=== PATIENT | female | born 1980 | race Caucasian/White ===

== ENCOUNTER 2019-06-21 22:48 | Emergency (ER) | payer OTHER, SELFPAY ==
--- OUTSIDE RECORDS SUMMARY | 2019-06-21 22:49 | XMS REPORT ---
:1980 [facility] Address [address] [place] [address] [address]. [address] [place] [address] Care Team Providers Name Role Phone Unavailable Unavailable Unavailable Payers Payer Name Policy Type Policy Number Effective Date Expiration Date Problems This patient has no known problems. Allergies, Adverse Reactions, Alerts Allergy Name Allergy Status Severity Reaction(s) Onset Inactive Treating Comments Type Date Date Clinician diphenhydramine DA Active U 05-04 00:00: 00 Medications This patient has no known medications. Results Test Description Test Time Test Comments Text Results Atomic Results Result Comments - XR 2018-05-13 FAX: Brayan Monroe MD [phone] [place]: St: ELBOW 22:50:00 REG 2 Name: SUNSHINE ARRIAZA [facility] : VIEWS 1980 Age/S: 37/F [address] [place] [address] Bl Unit #: LT [id number] Loc: [place] [address] Phys: Brayan Monroe MD Acct : [id number] Dis Date: Status: REG ER PHONE #: [phone] Exam Date: 05/13/20182245 FAX #: [phone] Reason: fall, pulled by dog EXAMS: CPT CODE: [id number] XR [place] [address] [place] [address] Procedure: Left Elbow Radiographs. Clinical Indication: Left elbow pain post fall while walking a dog. Comparison: Left forearm radiographs . FINDINGS: The 2 views of the left elbow show normal alignment without fractures or dislocations. The joint spaces are normal. There is no joint effusion. The radial head, olecranon and distal humeral condyle regions are unremarkable. There is no elbow region soft tissue swelling. There are no radiopaque foreign bodies. IMPRESSION: 1. No fractures or dislocation. SL: K56-H Electronically Signed by Jeaneth Malloy on 2018 at 6431 Reported and signed by: Damon Moya M.D. CC: Brayan Monroe MD Technologist: RT Ana(R); Zi Reyes [facility] Date/Time/ By: 05/13/2018 (346) : By: GarcíaTDO Orig Print D/T: S: 2018 (1333) PAGE 1 Signed Report - XR 2018-05-13 FAX: Brayan Monroe MD [phone] [place]: St: [facility] 22:48:00 REG M 2 Name: SUNSHINE ARRIAZA [facility] : VIEWS 1980 Age/S: 37/F [address] [place] [address] Unit #: LT [id number] Loc: [place] [address] Phys: Brayan Monroe MD Acct : [id number] Dis Date: Status: REG ER PHONE #: [phone] Exam Date: 05/13/20182245 FAX #: [phone] Reason: fall, pulled by dog EXAMS: CPT CODE: [id number] XR [place] [address] [place] [address] Procedure: Left Forearm Radiographs. Clinical Indication: Left forearm pain post fall while walking a dog. Comparison: None. FINDINGS: The 2 views of the left forearm show normal alignment without fractures or dislocations. The visualized wrist and elbow joints are unremarkable. There is no soft tissue swelling or radiopaque foreign bodies. IMPRESSION: 1. No fractures or dislocation. SL: K56-H at 2248 Reported and signed by: Damon Malloy M.D. CC: Brayan Monroe MD Technologist: RT Ana(R); Zi Reyes Trnscrd Date/Time/By: 05/13/2018 (5565) : By: GarcíaTDO Orig Print D/T: S: 05/13/2018 (6658) PAGE 1 Signed Report - XR 2018-05-13 FAX: Brayan Monroe MD [phone] [place]: St: HAND 3 22:47:00 REG + V LT Name: SUNSHINE ARRIAZA [facility] : 1980 Age/S: 37/F [address] [place] [address] Unit # : [id number] Loc: [place] [address] Phys : Brayan Monroe MD Acct : [id number] Dis Date: Status: REG ER PHONE #: [phone] Exam Date: 05/13/20182245 FAX #: [phone] Reason: fall, pulled by dog EXAMS: CPT CODE: [id number] XR HAND 3 + [place] [address] PROCEDURE: Left Hand Radiographs. Clinical Indication: Left hand pain post fall while walking a dog. Comparison: None FINDINGS: The 3 views of the left hand show normal alignment without fractures or dislocations. The digit and thumb interphalangeal joints are unremarkable. The metacarpophalangeal joints are unremarkable. The carpometacarpal joint regions are unremarkable. There is soft tissue swelling in the thenar eminence. The visualized wrist region is grossly unremarkable. IMPRESSION: 1. No fractures or dislocation. 2. Soft tissue swelling SL: K56-H at 2247 Reported and signed by: Damon Malloy M.D. CC: Brayan Monroe MD Technologist: Tk Walsh, RT(R); Zi Reyes Trnscrd Date/Time/By: 05/13/2018 (2246) : By: GarcíaTDO Orig Print D/T: S: 05/13/2018 (5654) PAGE 1 Signed Report - XR 2018-05-13 FAX: Brayan Monroe MD [phone] [place]: St: WRIST 22:46:00 REG 3 + V Name: SUNSHINE ARRIAZA [facility] : LT 1980 Age/S: 37/F [address] [place] [address] Unit #: [id number] Loc: [place] [address] Phys : Brayan Monroe MD Acct : [id number] Dis Date: Status: REG ER PHONE #: [phone] Exam Date: 05/13/20182245 FAX #: [phone] Reason: fall, pulled by dog EXAMS: CPT CODE: [id number] XR WRIST 3 + [place] [address] Procedure: Left Wrist Radiographs. Clinical Indication: Left wrist pain post fall while walking a dog. Comparison: None. FINDINGS: The 3 views of the left wrist show no fractures or dislocations. The soft tissues are unremarkable. IMPRESSION: 1. No fractures or dislocations. SL: K56-H at 2246 Reported and signed by: Damon Malloy M.D. CC: Brayan Monroe MD Technologist: Tk Walsh RT(R); Zi Reyes Trnscrd Date/Time/By: 05/13/2018 (6488) : By: LesliO Orig Print D/T: S: 05/13/2018 (0624) PAGE 1 Signed Report
[2019-06-22] MEDS ORDERED: MORPHINE 4 MG/ML SYR ONE (00:52)
[2019-06-22] MEDS ORDERED: dexAMETHasone 10 MG/ML VIAL ONE (00:52)
[2019-06-22] MEDS ORDERED: KETOROLAC 30 MG/ML INJ ONE (00:52)
[2019-06-22] MEDS ORDERED: DIAZEPAM 5 MG TABLET ONE (00:52)
[2019-06-22] MEDS ORDERED: NA CHLORIDE 0.9% 1,000 ML ONE (00:53)
[2019-06-22] MEDS ORDERED: ONDANSETRON 4 MG/2 ML VIAL ONE (00:53)
[2019-06-22 01:34] LABS: Absolute Lymphocytes (CBC) 2.5 K/uL (0.7-4.9); Basophils % 0.5 % (0-1.3); Hematocrit 33.8 % (36.0-45.0); Lymphocytes % 24.4 % (15.3-44.8); MPV 8.3 fL (7.6-11.3); RBC Red Blood Cell Count 4.43 M/uL (3.86-4.86)
[2019-06-22 01:49] LABS: ALT/SGPT 19 U/L (12-78); AST/SGOT 10 U/L (15-37); Albumin 3.6 g/dL (3.4-5.0); Alkaline Phosphatase 79 U/L (45-117); BUN Blood Urea Nitrogen 12 mg/dL (7-18); Bicarbonate 30 mmol/L (21-32); Bilirubin Total 0.2 mg/dL (0.2-1.0); Glucose Level 92 mg/dL (74-106); Potassium 3.4 mmol/L (3.5-5.1); Protein, Total 7.6 g/dL (6.4-8.2); Sodium Level 141 mmol/L (136-145)
--- NOTE | 2019-06-22 02:08 | ER ---
Nurse's Notes [facility] Name: Enedina Spencer Age: 38 yrs Sex: Female : 1980 Arrival Date: 06/21/2019 Time: 22:51 Bed 6 Private MD: Diagnosis: Low back pain;Sciatica, left side;Sciatica, right side;Hypokalemia Presentation: 06/20 23:05 Chief complaint: Patient states: that she woke up yesterday with severe mid to lower fc back pain that radiated down both legs. Denies any injuries. Coronavirus screen: The patient has NOT traveled to a country currently being monitored by the [facility] within the last 14 days. Proceed with normal triage procedures. The patient has NOT had contact with any known and/or suspected case of coronavirus. Proceed with normal triage procedures. Ebola Screen: Patient negative for fever greater than or equal to 101.5 degrees Fahrenheit, and additional compatible Ebola Virus Disease symptoms Patient denies exposure to infectious person. Patient denies travel to an Ebola-affected area in the 21 days before illness onset. Initial Sepsis Screen:. Risk Assessment: Do you want to hurt yourself or someone else? Patient reports no desire to harm self or others. 23:05 Method Of Arrival: Ambulatory 23:05 Acuity: ARLETTE 3 23:05 Onset of symptoms was June 20, 2019. Care prior to arrival: Medication(s) given: fc Motrin, 800 mg, last at 1300. 23:34 Initial Sepsis Screen: Does the patient meet any 2 criteria? No. Patient's initial sepsis screen is negative. Does the patient have a suspected source of infection? No. Patient's initial sepsis screen is negative. SUGAR SAMPLER: 23:05 [facility] 06/20/2019 Historical: - Allergies: 23:34 Benadryl; fc - Home Meds: 23:34 None [Active]; fc - PMHx: 23:34 Osteoarthritis; Degenerative disc disease; Kidney stones; fc - PSHx: 23:34 Kidney stone removal; Cholecystectomy; Tubal ligation; Urinary Track dilation; fc - Immunization history:: Last tetanus immunization: unknown, Flu vaccine is not up to date. - Social history:: Smoking status: Patient reports the use of cigarette tobacco products, smokes .25 packs per day, Patient uses alcohol, but reports only rare drinking. Patient/guardian denies using street drugs. - Family history:: not pertinent. Screenin:05 Abuse screen: Denies threats or abuse. Nutritional screening: No deficits noted. Tuberculosis screening: No symptoms or risk factors identified. Fall Risk None identified. Assessment: 23:36 Pain: Complains of pain in lumbar area Pain currently is 10 out of 10 on a pain scale. 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 Respiratory: Respiratory effort is even, unlabored, Respiratory pattern is regular. Derm: Skin is dry, Skin is normal, Skin temperature is warm. Musculoskeletal: Circulation, motion, and sensation intact. Capillary refill < 3 seconds, Range of motion: intact in all extremities. Vital Signs: 23:05 BP 105 / 64; Pulse 79; Resp 16; Temp 97.9(O); Pulse Ox 100% on R/A; Weight 90.72 kg fc (R); Height 5 ft. 2 in. (157.48 cm) (R); Pain 10/10; 23:05 Body Mass Index 36.58 (90.72 kg, 157.48 cm) ED Course: 22:51 Patient arrived in ED. jg7 23:05 Arm band placed on Patient placed in an exam room, on a stretcher. fc 23:05 Patient has correct armband on for positive identification. Placed in gown. Bed in low fc position. Call light in reach. 23:05 No provider procedures requiring assistance completed. fc 23:31 Triage completed. fc 23:33 Robert Shen MD is Attending Physician. [facility] 23:36 Esperanza Shipley, YEIMI is Primary Nurse. ls4 06/21 01:18 CT Lumbar Spine Wo Con In Process Unspecified. EDMS 01:20 Urine Culture Sent. mw2 02:06 Gurwinder Andres MD is Referral Physician. johana Administered Medications: 00:36 Drug: TORadol 30 mg Route: IVP; Site: right antecubital; ls4 00:36 Drug: Zofran (Ondansetron) 4 mg Route: IVP; Site: right antecubital; ls4 00:36 Drug: Decadron - Dexamethasone 10 mg Route: IVP; Site: right antecubital; ls4 00:36 Drug: Valium 5 mg Route: PO; ls4 01:23 Drug: NS 0.9% 1000 ml Route: IV; Rate: 1 bolus; Site: right antecubital; ls4 01:23 Drug: morphine 4 mg Route: IVP; Site: right antecubital; ls4 Outcome: 02:06 Discharge ordered by MD. vaughn 02:46 Patient left the ED. fc Signatures: Dispatcher [employer] Robert Durham MD MD cha Chretien, Felicia RN RN Irish Durbin 2 Esperanza Shipley RN RN ls4 Ruth Sabag7 Corrections: (The following items were deleted from the chart) 06/20 23:35 23:05 90.72 kg Reported; Height 5 ft. 2 in. Reported; BMI: 36.5; Pain 01/18; fc fc
--- NOTE | 2019-06-22 02:09 | EDPHYS ---
Physician Documentation [facility] Name: Enedina Spencer Age: 38 yrs Sex: Female : 1980 Arrival Date: 06/21/2019 Time: 22:51 Bed 6 Private MD: Robert Hernández HPI: 06/21 00:34 This 38 yrs old Female presents to ER via Ambulatory with complaints of Back johana Pain, Leg Pain. 00:34 The patient presents with pain that is acute, with no known mechanism of injury. The johana symptoms are located in the lumbar area. Onset: The symptoms/episode began/occurred 3 day(s) ago. The pain radiates to the left low back and right low back. Associated signs and symptoms: The patient has no apparent associated signs or symptoms. The problem was sustained from unknown cause. Modifying factors: The patient symptoms are alleviated by remaining still, the patient symptoms are aggravated by any movement, bending, coughing, lifting, movement. Severity of symptoms: At their worst the symptoms were moderate. The patient has not experienced similar symptoms in the past. RN MDS: 06/20 23:05 LMP 06/20/2019 fc Historical: - Allergies: 23:34 Benadryl; fc - Home Meds: 23:34 None [Active]; fc - PMHx: 23:34 Osteoarthritis; Degenerative disc disease; Kidney stones; fc - PSHx: 23:34 Kidney stone removal; Cholecystectomy; Tubal ligation; Urinary Track dilation; fc - Immunization history:: Last tetanus immunization: unknown, Flu vaccine is not up to date. - Social history:: Smoking status: Patient reports the use of cigarette tobacco products, smokes .25 packs per day, Patient uses alcohol, but reports only rare drinking. Patient/guardian denies using street drugs. - Family history:: not pertinent. ROS: 06/21 00:34 Constitutional: Negative for fever, chills, and weight loss, Eyes: Negative for injury, johana pain, redness, and discharge, ENT: Negative for injury, pain, and discharge, Neck: Negative for injury, pain, and swelling, Cardiovascular: Negative for chest pain, palpitations, and edema, Respiratory: Negative for shortness of breath, cough, wheezing, and pleuritic chest pain, Abdomen/GI: Negative for abdominal pain, nausea, vomiting, diarrhea, and constipation, : Negative for injury, bleeding, discharge, and swelling, MS/Extremity: Negative for injury and deformity, Skin: Negative for injury, rash, and discoloration, Neuro: Negative for headache, weakness, numbness, tingling, and seizure, Psych: Negative for depression, anxiety, suicide ideation, homicidal ideation, and hallucinations, Allergy/Immunology: Negative for hives, rash, and allergies, Endocrine: Negative for neck swelling, polydipsia, polyuria, polyphagia, and marked weight changes, Hematologic/Lymphatic: Negative for swollen nodes, abnormal bleeding, and unusual bruising. Back: Positive for decreased range of motion, pain at rest, pain with movement. Exam: 00:34 Constitutional: This is a well developed, well nourished patient who is awake, alert, johana and in no acute distress. Head/Face: Normocephalic, atraumatic. Eyes: Pupils equal round and reactive to light, extra-ocular motions intact. Lids and lashes normal. Conjunctiva and sclera are non-icteric and not injected. Cornea within normal limits. Periorbital areas with no swelling, redness, or edema. ENT: Nares patent. No nasal discharge, no septal abnormalities noted. Tympanic membranes are normal and external auditory canals are clear. Oropharynx with no redness, swelling, or masses, exudates, or evidence of obstruction, uvula midline. Mucous membranes moist. Neck: Trachea midline, no thyromegaly or masses palpated, and no cervical lymphadenopathy. Supple, full range of motion without nuchal rigidity, or vertebral point tenderness. No Meningismus. Chest/axilla: Normal chest wall appearance and motion. Nontender with no deformity. No lesions are appreciated. Cardiovascular: Regular rate and rhythm with a normal S1 and S2. No gallops, murmurs, or rubs. Normal PMI, no JVD. No pulse deficits. Respiratory: Lungs have equal breath sounds bilaterally, clear to auscultation and percussion. No rales, rhonchi or wheezes noted. No increased work of breathing, no retractions or nasal flaring. Abdomen/GI: Soft, non-tender, with normal bowel sounds. No distension or tympany. No guarding or rebound. No evidence of tenderness throughout. Skin: Warm, dry with normal turgor. Normal color with no rashes, no lesions, and no evidence of cellulitis. MS/ Extremity: Pulses equal, no cyanosis. Neurovascular intact. Full, normal range of motion. Neuro: Awake and alert, GCS 15, oriented to person, place, time, and situation. Cranial nerves II-XII grossly intact. Motor strength 5/5 in all extremities. Sensory grossly intact. Cerebellar exam normal. Normal gait. Psych: Awake, alert, with orientation to person, place and time. Behavior, mood, and affect are within normal limits. 00:34 Back: pain, ROM is painful, normal spinal alignment noted, CVA tenderness, is absent, muscle spasm, is appreciated in the left low back and right low back. Vital Signs: 06/20 23:05 BP 105 / 64; Pulse 79; Resp 16; Temp 97.9(O); Pulse Ox 100% on R/A; Weight 90.72 kg fc (R); Height 5 ft. 2 in. (157.48 cm) (R); Pain 10/10; 23:05 Body Mass Index 36.58 (90.72 kg, 157.48 cm) fc MDM: 23:33 Patient medically screened. [facility] 06/21 00:37 Data reviewed: vital signs, nurses notes, lab test result(s), radiologic studies, CT [facility] scan. 06/21 00:34 Order name: CBC with Diff; Complete Time: 02:05 [facility] 06/21 00:34 Order name: Comprehensive Metabolic Panel; Complete Time: 02:05 [facility] 06/21 00:34 Order name: Urine Culture [facility] 06/21 00:34 Order name: CT Lumbar Spine Wo Con [facility] 06/21 00:34 Order name: Urine Test (obtain specimen); Complete Time: 01:20 [facility] 06/21 02:06 Order name: PO challenge: JUICE johana Administered Medications: 00:36 Drug: TORadol 30 mg Route: IVP; Site: right antecubital; ls4 00:36 Drug: Zofran (Ondansetron) 4 mg Route: IVP; Site: right antecubital; ls4 00:36 Drug: Decadron - Dexamethasone 10 mg Route: IVP; Site: right antecubital; ls4 00:36 Drug: Valium 5 mg Route: PO; ls4 01:23 Drug: NS 0.9% 1000 ml Route: IV; Rate: 1 bolus; Site: right antecubital; ls4 01:23 Drug: morphine 4 mg Route: IVP; Site: right antecubital; ls4 Disposition: 06/22/19 02:06 Discharged to Home. Impression: Low back pain, Sciatica, left side, Sciatica, right side, Hypokalemia. - Condition is Stable. - Discharge Instructions: Back Pain, Adult, Chronic Back Pain, Musculoskeletal Pain, Sciatica, Back Injury Prevention, Swbg-gj-Vtdj, Back Pain, Adult, Tbko-xp-Mebz, Back Exercises, Pgqu-gd-Wzbq. - Prescriptions for Ibuprofen 600 mg Oral Tablet - take 1 tablet by ORAL route every 6 hours As needed take with food; 20 tablet. Tylenol- Codeine #3 300-30 mg Oral Tablet - take 2 tablets by ORAL route every 6 hours As needed; 24 tablet. Valium 5 mg Oral Tablet - take 1 tablet by ORAL route every 8 hours As needed; 15 tablet. Medrol (Carlos) 4 mg Oral Tablets, Dose Pack - take 1 tablet by ORAL route as directed - follow package instructions; 1 packet. - Medication Reconciliation Form, Thank You Letter, Antibiotic Education, Prescription Opioid Use, Work release form form. - Follow up: Private Physician; When: 2 - 3 days; Reason: Recheck today's complaints, Continuance of care, Re-evaluation by your physician. Follow up: Gurwinder Andres; When: 2 - 3 days; Reason: Recheck today's complaints, Continuance of care, Re-evaluation by your physician. - Problem is new. - Symptoms have improved. Signatures: Dispatcher [employer] EDMS Robert Shen MD MD cha Chretien, Felicia, RN RN Esperanza Mitchell RN RN ls4 Corrections: (The following items were deleted from the chart) 02:46 02:06 06/22/2019 02:06 Discharged to Home. Impression: Low back pain; Sciatica, left fc side; Sciatica, right side; Hypokalemia. Condition is Stable. Discharge Instructions: Back Pain, Adult, Chronic Back Pain, Musculoskeletal Pain, Sciatica, Back Injury Prevention, Bkcd-uu-Uzkr, Back Pain, Adult, Srju-ex-Gslc, Back Exercises, Fecx-nt-Nymb. Prescriptions for Ibuprofen 600 mg Oral Tablet - take 1 tablet by ORAL route every 6 hours As needed take with food; 20 tablet, Tylenol-Codeine #3 300-30 mg Oral Tablet - take 2 tablets by ORAL route every 6 hours As needed; 24 tablet, Valium 5 mg Oral Tablet - take 1 tablet by ORAL route every 8 hours As needed; 15 tablet, Medrol (Carlos) 4 mg Oral Tablets, Dose Pack - take 1 tablet by ORAL route as directed - follow package instructions; 1 packet. and Forms are Medication Reconciliation Form, Thank You Letter, Antibiotic Education, Prescription Opioid Use. Follow up: Private Physician; When: 2 - 3 days; Reason: Recheck today's complaints, Continuance of care, Re-evaluation by your physician. Follow up: Gurwinder Andres; When: 2 - 3 days; Reason: Recheck today's complaints, Continuance of care, Re-evaluation by your physician. Problem is new. Symptoms have improved. johana
[2019-06-22 02:52] VITALS: BP 105/64; TEMP 97.9; O2SAT 100
--- NOTE | 2019-06-22 11:46 | RAD REPORT ---
EXAM DESCRIPTION: CT - Spine Lumbar Wo Con - 06/22/2019 6:00 am CLINICAL HISTORY: The patient is 38 years old and is Female; LOWER BACK PAIN TECHNIQUE: Axial computed tomography images of the lumbar spine without intravenous contrast. Sagi ttal and coronal reformatted images were created and reviewed. This CT exam was performed using one or more of the following dose reduction techniques: automated exposure control, adjustment of the mA and/or kV according to patient size, and/or use of iterative reconstruction technique. COMPARISON: No relevant prior studies available. FINDINGS: VERTEBRAE: The vertebral body heights and alignment are maintained. No acute fracture. DISCS/SPINAL CANAL/NEURAL FORAMINA: Minimal intervertebral disc space narrowing at L5-S1 is pres ent. The remaining intervertebral disc spaces are maintained. There is no canal stenosis or neural fo raminal narrowing. SOFT TISSUES: The soft tissues are normal. IMPRESSION: Minimal degenerative change at L5-S1. Electronically signed by: Karolina Recinos MD 06/22/2019 1:47 AM CDT Due to temporary technical issues with the PACS/Fluency reporting system, reports are being signed by the in house radiologist as a courtesy to ensure prompt reporting. The interpreting radiologist is f ully responsible for the content of the report.
== END 2019-06-22 02:46 | disposition home or self-care (01) ==
LOC: ER 22:48
DX: M54.32 Sciatica, left side (principal); M54.31 Sciatica, right side; E87.6 Hypokalemia; F17.210 Nicotine dependence, cigarettes, uncomplicated; Z88.8 Allergy status to other drugs, medicaments and biological substances
CPT/HCPCS: 36415; 72131; 80053; 85025; 87077; 87086; 87088; 87186; 96374; 96375; 99283; J1100; J2405; J7030